=== PATIENT | male | born 1950 | race Caucasian/White ===

== ENCOUNTER 2016-11-05 05:58 | Emergency (ER) | payer BC, MEDICARE, OTHER ==
[~2016-11-05] VITALS: Ht 182.9 cm; Wt 113.6 kg
[~2016-11-05 05:58] MED LIST: ASPI81TA85 PO; CRES20TA PO; CRES5TAB PO; FISH100049 PO; FISHCAP PO; LISI-538 PO; LISI40TAB PO; METF10004 PO; METF500T13 PO; METO1TAB32 PO; METO25TAB PO; OMEP40CA2 PO; PIOG15TA3 PO; PIOG30TA4 PO; PLAV1TAB2 PO
[2016-11-05] MEDS ORDERED: ACETAMINOPH W/CODEINE #3 TAB UD PO ONE (08:00)
[2016-11-05] MEDS ORDERED: ACET30TAB PO (08:16)
--- NOTE | 2016-11-05 08:16 | REP ---
LUMBAR SPINE, FIVE VIEWS: HISTORY: Trauma. COMPARISON: 11/30/2010. There is no acute fracture or subluxation. The intervertebral discs are decreased in height consistent with disc degeneration. Osteophytes are present throughout the lumbar spine. There is narrowing of the L3-4 through L5-S1 facet joints. IMPRESSION: Degenerative change as described above. Signed by Ran Whitlock MD 11/05/2016 08:24 A
--- NOTE | 2016-11-05 08:23 | REP ---
RIGHT HAND, FOUR VIEWS: HISTORY: Pain. There is no acute fracture or dislocation. There is narrowing of the first carpometacarpal joint space with associated osteophyte formation. There is narrowing of the distal interphalangeal joint spaces. Osteophytes are present at the second through fifth distal interphalangeal joint spaces. IMPRESSION: Degenerative change as described above. Signed by Ran Whitlock MD 11/05/2016 08:24 A
[2016-11-05 08:45] VITALS: BP 155/74
== END 2016-11-05 09:01 | disposition home or self-care (01) ==
LOC: EDSEX 05:58 → M ED 05:58 → EDBD 05:58 → M ED 09:01
DX: M54.5 Low back pain (principal); M19.042 Primary osteoarthritis, left hand; M25.78 Osteophyte, vertebrae; Z95.1 Presence of aortocoronary bypass graft; I25.2 Old myocardial infarction; E78.00 Pure hypercholesterolemia, unspecified; I10 Essential (primary) hypertension; E11.9 Type 2 diabetes mellitus without complications; Z79.82 Long term (current) use of aspirin; Z79.899 Other long term (current) drug therapy; Z79.84 Long term (current) use of oral hypoglycemic drugs
CPT/HCPCS: 72110; 73130; 96372; 99284; J3360

== ENCOUNTER 2017-10-06 09:50 | Day surgery (SDC) | payer OTHER, BC ==
[~2017-10-06 09:50] MED LIST changes: -ASPI81TA85 PO; -CRES20TA PO; -CRES5TAB PO; -FISH100049 PO; -FISHCAP PO; +LIDOCAINE 2% INJ 100 MG/5 ML SDV (FOR ANES.) As Ordered; -LISI-538 PO; -LISI40TAB PO; -METF10004 PO; -METF500T13 PO; -METO1TAB32 PO; -METO25TAB PO; -OMEP40CA2 PO; -PIOG15TA3 PO; -PIOG30TA4 PO; -PLAV1TAB2 PO; +PROPOFOL 200 MG/20 ML VIAL As Ordered
[2017-10-06] MEDS: NS 1,000 ML IV (10:00)
== END 2017-10-06 12:00 | disposition home or self-care (01) ==
LOC: M OPP 09:50
DX: Z12.11 Encounter for screening for malignant neoplasm of colon (principal); K64.0 First degree hemorrhoids; D12.0 Benign neoplasm of cecum; K57.30 Diverticulosis of large intestine without perforation or abscess without bleeding; Z86.010 Personal history of colon polyps; I25.2 Old myocardial infarction; I10 Essential (primary) hypertension; M15.9 Polyosteoarthritis, unspecified; Z79.82 Long term (current) use of aspirin; Z79.899 Other long term (current) drug therapy; Z86.69 Personal history of other diseases of the nervous system and sense organs; Z95.1 Presence of aortocoronary bypass graft
CPT/HCPCS: 45380

== ENCOUNTER → 2017-12-01 | Outpatient (CLI) | payer OTHER, BC | LOC: M RAD 13:19 | DX: I65.23 Occlusion and stenosis of bilateral carotid arteries (principal) | CPT/HCPCS: 93880 ==

== ENCOUNTER → 2020-02-17 | Outpatient (REF) | payer OTHER, BC ==
[~2020-02-17] MED LIST changes: +ACET-716 PO; +ASPI81TA86 PO; +CALC500T61 PO; +CARV12.5 PO; +CRES20TA2 PO; +CRES5TAB PO; +FISH100049 PO; +FISHCAP PO; -LIDOCAINE 2% INJ 100 MG/5 ML SDV (FOR ANES.) As Ordered; +LISI-538 PO; +LISI40TA52 PO; +METF10004 PO; +METF500T13 PO; +METO1TAB32 PO; +METO1TAB63 PO; +MULTCAP PO; +OMEP40CA97 PO; +PIOG1TAB36 PO; +PIOG1TAB37 PO; +PLAV1TAB2 PO; -PROPOFOL 200 MG/20 ML VIAL As Ordered; +VALS1TAB67 PO; +VITA100066 PO
[2020-02-17 19:03] LABS: APPEARANCE, URINE CLEAR (CLEAR); BACTERIA, URINE AUTO NEGATIVE (NEGATIVE); BILIRUBIN, URINE AUTO NEGATIVE (NEGATIVE); BLOOD, URINE BLOOD NEGATIVE (NEGATIVE); COLOR, URINE YELLOW (YELLOW); GLUCOSE, URINE (UA) AUTO NEGATIVE (NEGATIVE); KETONE, URINE AUTO NEGATIVE (NEGATIVE); LEUKOCYTE ESTERASE, URINE AUTO NEGATIVE (NEGATIVE); MUCUS, URINE SMALL (NEGATIVE); NITRITE, URINE AUTO NEGATIVE (NEGATIVE); PROTEIN, URINE AUTO 1+ mg/dL (NEGATIVE); RBC, URINE AUTO 1 /HPF (0-3); SPECIFIC GRAVITY URINE AUTO 1.017 (1.002-1.035); SQUAMOUS EPITHELIAL CELL UR AU 0 /HPF (0-6); WBC, URINE AUTO 0 /HPF (0-3)
== END ==
LOC: M SMT 16:54
PROVIDERS: ATTEND Nurse Practitioner Women's Health
DX: N40.0 Benign prostatic hyperplasia without lower urinary tract symptoms (principal)

== ENCOUNTER → 2020-05-15 | Outpatient (CLI) | payer OTHER, BC ==
[~2020-05-15] MED LIST changes: -LISI-538 PO; +LISI20TA33 PO
== END ==
LOC: M LAB 11:57
PROVIDERS: ATTEND Nurse Practitioner Women's Health
DX: N40.0 Benign prostatic hyperplasia without lower urinary tract symptoms (principal); R97.20 Elevated prostate specific antigen [PSA]

== ENCOUNTER → 2021-02-03 | Outpatient (CLI) | payer OTHER, BC ==
[~2021-02-03] MED LIST changes: +OMEP40CA4 PO; -OMEP40CA97 PO
[2021-02-03 11:07] LABS: APPEARANCE, URINE CLEAR (CLEAR); BACTERIA, URINE AUTO NEGATIVE (NEGATIVE); BILIRUBIN, URINE AUTO NEGATIVE (NEGATIVE); BLOOD, URINE BLOOD NEGATIVE (NEGATIVE); COLOR, URINE YELLOW (YELLOW); GLUCOSE, URINE (UA) AUTO NEGATIVE (NEGATIVE); KETONE, URINE AUTO NEGATIVE (NEGATIVE); LEUKOCYTE ESTERASE, URINE AUTO NEGATIVE (NEGATIVE); MUCUS, URINE SMALL (NEGATIVE); NITRITE, URINE AUTO NEGATIVE (NEGATIVE); PROTEIN, URINE AUTO 1+ mg/dL (NEGATIVE); RBC, URINE AUTO 0 /HPF (0-3); SPECIFIC GRAVITY URINE AUTO 1.015 (1.002-1.035); SQUAMOUS EPITHELIAL CELL UR AU 0 /HPF (0-6); UROBILINOGEN, URINE AUTO 0.2 mg/dL (0.0-2.0); WBC, URINE AUTO 0 /HPF (0-3)
[2021-02-03 11:15] LABS: HEMOGLOBIN 13.1 g/dl (13.5-17.5); MEAN CORPUSCULAR HGB CONC 34.5 g/dl (32.0-36.5); MEAN CORPUSCULAR VOLUME 92.9 fl (80.0-96.0); PLATELET COUNT, AUTOMATED 237 10^3/uL (150-450); RED BLOOD COUNT 4.09 10^6/uL (4.30-6.10); WHITE BLOOD COUNT 6.7 10^3/uL (4.0-10.0)
[2021-02-03 11:48] LABS: MAU/CREAT RATIO 104.6 MCG/MG (0.0-30.0)
[2021-02-03 11:49] LABS: ALBUMIN 3.5 GM/DL (3.2-5.2); ALT/SGPT 21 U/L (12-78); BILIRUBIN,TOTAL 0.5 MG/DL (0.2-1.0); BLOOD UREA NITROGEN 16 MG/DL (7-18); CALCIUM LEVEL 9.1 MG/DL (8.8-10.2); CARBON DIOXIDE LEVEL 28 MEQ/L (21-32); CHLORIDE LEVEL 108 MEQ/L (98-107); CHOLESTEROL LEVEL 125 MG/DL (<200); CHOLESTEROL RISK RATIO 2.604 (<5); CREATININE FOR GFR 1.12 MG/DL (0.70-1.30); GLOMERULAR FILTRATION RATE > 60.0 (>42); GLUCOSE, FASTING 136 MG/DL (70-100); HDL CHOLESTEROL 48 MG/DL (>40); LDL CHOLESTEROL 60 MG/DL (<100); NON-HDL-C 77 MG/DL; POTASSIUM SERUM 4.5 MEQ/L (3.5-5.1); PROSTATIC SPECIFIC AG MONITOR 4.24 NG/ML (< 4.00); SODIUM LEVEL 141 MEQ/L (136-145); TOTAL 25(OH) VITAMIN D 40.1 NG/ML (30.0-100.0); TOTAL PROTEIN 6.8 GM/DL (6.4-8.2); TRIGLYCERIDES LEVEL 85 MG/DL (<150); URIC ACID 5.5 MG/DL (3.5-7.2)
[2021-02-03 12:38] LABS: HEMOGLOBIN A1c 6.5 %
== END ==
LOC: M LAB 08:34
PROVIDERS: ATTEND Nurse Practitioner Primary Care
DX: D64.9 Anemia, unspecified (principal); E11.9 Type 2 diabetes mellitus without complications; E78.5 Hyperlipidemia, unspecified; I25.10 Atherosclerotic heart disease of native coronary artery without angina pectoris; Z79.899 Other long term (current) drug therapy

== ENCOUNTER → 2021-02-15 | Outpatient (CLI) | payer OTHER ==
--- NOTE | 2021-02-15 10:58 | REP ---
INDICATION: OCCLUSION/STENOSIS MARISELA COMPARISON: 12/01/2017 TECHNIQUE: Clayton scale and color Doppler evaluation using linear high frequency transducer Findings: FINDINGS: Two-dimensional clayton scale and color images demonstrate significant mixed atheromatous plaquing throughout the common carotid arteries extending into the visualized proximal internal and external carotid arteries bilaterally. Color Doppler interrogation demonstrates arterial wave patterns with elements of spectral broadening. Normal flow direction is appreciated in the bilateral vertebral arteries. ICA peak systolic velocity: Right 71.3 cm/s; Left 89.3 cm/s ICA diastolic velocity: Right 14.3 cm/s; Left 20.7 cm/s ECA peak systolic velocity: Right 158.0 cm/s; Left 141.0 cm/s CCA peak systolic velocity: Right 92.5 cm/s; Left 80.2 cm/s ICA/CCA ratio: Right 0.77 cm/s; Left 1.11 cm/s IMPRESSION: 1. 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 2. Based on set standards narrowing falls within the less than 50% range. However, visible areas of narrowing through the right internal carotid artery and left common carotid artery suggest narrowing in the 50-69% range. Correlation with symptomatology and possible CTA or MRA may be considered for further more definitive evaluation. <Electronically signed by Ramiro Perez > 02/15/21 [id number]
== END ==
LOC: M RAD 10:01
PROVIDERS: ATTEND Nurse Practitioner Family
DX: I65.23 Occlusion and stenosis of bilateral carotid arteries (principal)

== ENCOUNTER → 2022-01-06 | Outpatient (CLI) | payer OTHER | LOC: M RAD 13:50 | PROVIDERS: ATTEND Nurse Practitioner Family | DX: I65.23 Occlusion and stenosis of bilateral carotid arteries (principal) ==

== ENCOUNTER 2022-12-16 14:31 | Inpatient (IN) | payer BC, MEDICARE, OTHER ==
[~2022-12-16] VITALS: Ht 182.9 cm; Wt 98.0 kg
[~2022-12-16 14:31] MED LIST changes: +CLOP75TA99 PO; -PLAV1TAB2 PO
[2022-12-16 15:51] LABS: BASO % 0.3 % (0.0-1.0); EOS # 0.2 10^3/uL (0.0-0.5); EOS % 1.8 % (0.0-3.0); HEMATOCRIT 36.9 % (42.0-52.0); HEMOGLOBIN 12.8 g/dl (13.5-17.5); LYMPH # 1.8 10^3/uL (1.5-5.0); LYMPH % 14.9 % (24.0-44.0); MEAN CORPUSCULAR HEMOGLOBIN 31.8 pg (27.0-33.0); MEAN CORPUSCULAR HGB CONC 34.7 g/dl (32.0-36.5); MEAN CORPUSCULAR VOLUME 91.6 fl (80.0-96.0); MONO # 0.9 10^3/uL (0.0-0.8); MONO % 7.1 % (2.0-8.0); NEUTROPHILS # 9.3 10^3/uL (1.5-8.5); NEUTROPHILS % 75.3 % (36.0-66.0); PLATELET COUNT, AUTOMATED 355 10^3/uL (150-450); RED BLOOD COUNT 4.03 10^6/uL (4.30-6.10); WHITE BLOOD COUNT 12.3 10^3/uL (4.0-10.0)
[2022-12-16 16:06] LABS: INR 1.23; PROTHROMBIN TIME 15.2 SECONDS (12.5-14.5)
[2022-12-16 16:07] LABS: PARTIAL THROMBOPLASTIN TIME 28.1 SECONDS (24.8-34.2)
[2022-12-16 16:15] LABS: CALCIUM LEVEL 8.6 MG/DL (8.3-10.6); CREATININE FOR GFR 1.85 MG/DL (0.70-1.30); GLOMERULAR FILTRATION RATE 38.2 (>42); POTASSIUM SERUM 3.2 MMOL/L (3.5-5.1)
[2022-12-16] MEDS ORDERED: NS 1,000 ML IV ONE (18:30)
[2022-12-16] MEDS ORDERED: PANTOPRAZOLE 40MG VIAL IV ONE (18:30)
[2022-12-16 19:44] LABS: ALBUMIN 3.4 G/DL (3.2-5.2); BILIRUBIN,DIRECT 0.3 MG/DL (<0.4); BILIRUBIN,TOTAL 0.7 MG/DL (0.3-1.2); TOTAL PROTEIN 7.2 G/DL (5.7-8.2)
[2022-12-16 19:46] LABS: MB/CK RELATIVE INDEX 0.91 (< OR =4)
[2022-12-16] MEDS ORDERED: AMLO1TAB25 PO (22:02)
[2022-12-16] MEDS ORDERED: OMEG10005 PO (22:02)
[2022-12-16] MEDS ORDERED: VITA100093 PO (22:02)
[2022-12-16] MEDS ORDERED: NESI25TA PO (22:02)
[2022-12-16] MEDS ORDERED: FLOM0.4C39 PO (22:02)
[2022-12-16] MEDS ORDERED: MULT-40 PO (22:02)
[2022-12-16] MEDS ORDERED: ALLO100T PO (22:02)
[2022-12-16] MEDS ORDERED: MUCI600T31 PO (22:02)
[2022-12-16] MEDS ORDERED: ALOG25TA PO (22:02)
[2022-12-16] MEDS ORDERED: CHLO125TA PO (22:03)
[2022-12-16] MEDS ORDERED: HOME MED LIST COMPLETE! XX SCH (22:05)
[2022-12-16] MEDS ORDERED: NS 1,000 ML IV SCH (22:05)
[2022-12-16 22:14] VITALS: BP 149/72; TEMP 98.3; O2SAT 100
[2022-12-16] MEDS ORDERED: GLUCOSE 4GM CHEW TABLET PO PRN (22:25)
[2022-12-16] MEDS ORDERED: GLUCAGON INJ 1MG VIAL SC PRN (22:25)
[2022-12-16] MEDS ORDERED: DEXTROSE 50% 50ML SYRINGE IV PRN (22:25)
[2022-12-16] MEDS ORDERED: POTASSIUM CHLORIDE 10% LIQ 20MEQ/15ML UDC PO ONE (22:30)
[2022-12-16] MEDS: TAMSULOSIN 0.4 MG CAP PO SCH (22:44)
[2022-12-16] MEDS: AZITHROMYCIN 250MG TABLET PO SCH (22:44)
[2022-12-16] MEDS: CARVedilol 12.5 MG TAB PO SCH (22:45)
[2022-12-16] MEDS: ROSUVASTATIN 10 MG TAB (CRESTOR) PO SCH (22:45)
[2022-12-17 06:52] LABS: BASO % 0.3 % (0.0-1.0); EOS # 0.2 10^3/uL (0.0-0.5); EOS % 3.8 % (0.0-3.0); HEMATOCRIT 34.3 % (42.0-52.0); HEMOGLOBIN 12.1 g/dl (13.5-17.5); LYMPH # 1.6 10^3/uL (1.5-5.0); LYMPH % 24.7 % (24.0-44.0); MEAN CORPUSCULAR HEMOGLOBIN 32.2 pg (27.0-33.0); MEAN CORPUSCULAR HGB CONC 35.3 g/dl (32.0-36.5); MEAN CORPUSCULAR VOLUME 91.2 fl (80.0-96.0); MONO # 0.6 10^3/uL (0.0-0.8); MONO % 9.8 % (2.0-8.0); NEUTROPHILS # 3.9 10^3/uL (1.5-8.5); NEUTROPHILS % 61.1 % (36.0-66.0); PLATELET COUNT, AUTOMATED 321 10^3/uL (150-450); RED BLOOD COUNT 3.76 10^6/uL (4.30-6.10); WHITE BLOOD COUNT 6.3 10^3/uL (4.0-10.0)
[2022-12-17] MEDS: INSULIN LISPRO (NovoLOG) PER UNIT SC SCH ×3 (07:30→16:28)
[2022-12-17] MEDS ORDERED: OMEPRAZOLE 20MG CAP PO SCH (09:00)
[2022-12-17] MEDS: allopurinoL 100 MG TAB PO SCH (10:55)
[2022-12-17] MEDS: CARVedilol 12.5 MG TAB PO SCH ×2 (10:55→20:58)
[2022-12-17] MEDS: guaiFENesin ER TABLET 600 MG TAB PO SCH (10:55)
[2022-12-17 11:02] LABS: CALCIUM LEVEL 8.2 MG/DL (8.3-10.6); CREATININE FOR GFR 1.44 MG/DL (0.70-1.30); GLOMERULAR FILTRATION RATE 51.1 (>42); MAGNESIUM LEVEL 1.2 MG/DL (1.8-2.4); POTASSIUM SERUM 3.4 MMOL/L (3.5-5.1)
[2022-12-17] MEDS ORDERED: MAG SULF 1GM/100ML (MAG RUN) 1 GM in IV 1 EA IV SCH (11:15)
[2022-12-17] MEDS ORDERED: POTASSIUM CHLORIDE 10MEQ SR TABLET PO ONE (11:15)
[2022-12-17 12:18] VITALS: BP 136/48; TEMP 97.9; O2SAT 96
[2022-12-17 12:22] LABS: HEMOGLOBIN 11.5 g/dl (13.5-17.5)
[2022-12-17] MEDS: NS 1,000 ML IV SCH ×2 (12:42→20:59)
[2022-12-17] MEDS: VITAMIN D 1,000 INTERNATIONAL UNITS TABLET PO SCH (13:15)
[2022-12-17] MEDS: MAG SULF 1GM/100ML (MAG RUN) 1 GM in IV 1 EA IV SCH ×3 (13:57→16:06)
[2022-12-17 14:00] VITALS: BP 126/66; TEMP 97.9; O2SAT 98
[2022-12-17] MEDS: MULTIVITAMINS/MINERALS THERAP 1 TAB PO SCH (17:52)
[2022-12-17] MEDS: CLOPIDOGREL 75 MG TAB PO SCH (17:52)
[2022-12-17] MEDS ORDERED: PANTOPRAZOLE 40MG VIAL IV SCH (18:00)
[2022-12-17 18:14] LABS: HEMATOCRIT 34.3 % (42.0-52.0)
[2022-12-17 20:00] VITALS: BP 148/66; TEMP 97.9; O2SAT 94
[2022-12-17] MEDS: AZITHROMYCIN 250MG TABLET PO SCH (20:53)
[2022-12-17] MEDS: OMEGA-3 1000MG CAPSULE PO SCH (20:53)
[2022-12-17] MEDS: ROSUVASTATIN 10 MG TAB (CRESTOR) PO SCH (20:54)
[2022-12-17] MEDS: TAMSULOSIN 0.4 MG CAP PO SCH (20:54)
[2022-12-17] MEDS: HEPARIN SOD (PORCINE) 5000UNITS/ML 1ML VIAL/SYRINGE SQ SCH (20:59)
[2022-12-18 00:37] LABS: HEMATOCRIT 31.9 % (42.0-52.0)
[2022-12-18 05:15] VITALS: BP 142/71; TEMP 98.1; O2SAT 95
[2022-12-18] MEDS: HEPARIN SOD (PORCINE) 5000UNITS/ML 1ML VIAL/SYRINGE SQ SCH (06:04)
[2022-12-18 06:54] LABS: BASO % 0.3 % (0.0-1.0); EOS # 0.2 10^3/uL (0.0-0.5); EOS % 3.4 % (0.0-3.0); HEMATOCRIT 35.2 % (42.0-52.0); HEMOGLOBIN 12.1 g/dl (13.5-17.5); LYMPH # 1.2 10^3/uL (1.5-5.0); LYMPH % 17.4 % (24.0-44.0); MEAN CORPUSCULAR HEMOGLOBIN 31.5 pg (27.0-33.0); MEAN CORPUSCULAR HGB CONC 34.4 g/dl (32.0-36.5); MEAN CORPUSCULAR VOLUME 91.7 fl (80.0-96.0); MONO # 0.5 10^3/uL (0.0-0.8); MONO % 7.2 % (2.0-8.0); NEUTROPHILS # 4.9 10^3/uL (1.5-8.5); NEUTROPHILS % 71.4 % (36.0-66.0); PLATELET COUNT, AUTOMATED 348 10^3/uL (150-450); RED BLOOD COUNT 3.84 10^6/uL (4.30-6.10); WHITE BLOOD COUNT 6.8 10^3/uL (4.0-10.0)
[2022-12-18 07:18] LABS: CALCIUM LEVEL 8.6 MG/DL (8.3-10.6); CREATININE FOR GFR 1.29 MG/DL (0.70-1.30); MAGNESIUM LEVEL 1.6 MG/DL (1.8-2.4); POTASSIUM SERUM 3.8 MMOL/L (3.5-5.1)
[2022-12-18] MEDS: MAG SULF 1GM/100ML (MAG RUN) 1 GM in IV 1 EA IV SCH ×2 (07:44→08:52)
[2022-12-18] MEDS: INSULIN LISPRO (NovoLOG) PER UNIT SC SCH (08:50)
[2022-12-18 08:53] VITALS: BP 144/71
[2022-12-18] MEDS: OMEGA-3 1000MG CAPSULE PO SCH (08:53)
[2022-12-18] MEDS: VITAMIN D 1,000 INTERNATIONAL UNITS TABLET PO SCH (08:53)
[2022-12-18] MEDS: MULTIVITAMINS/MINERALS THERAP 1 TAB PO SCH (08:53)
[2022-12-18] MEDS: CLOPIDOGREL 75 MG TAB PO SCH (08:53)
[2022-12-18] MEDS: CARVedilol 12.5 MG TAB PO SCH (08:54)
[2022-12-18] MEDS: guaiFENesin ER TABLET 600 MG TAB PO SCH (08:54)
[2022-12-18] MEDS: allopurinoL 100 MG TAB PO SCH (08:54)
[2022-12-18] MEDS ORDERED: PANT40TA29 PO (11:04)
[2022-12-18] MEDS ORDERED: AZIT-12 PO (11:04)
== END 2022-12-18 11:30 | disposition home or self-care (01) | DRG 371 ==
LOC: M ED 14:31 → M ED INP 22:03 → ENRESERV 12-17 11:19 → M MSPAV 12-17 12:40
PROVIDERS: ADMIT Internal Medicine; ATTEND Internal Medicine
DX: A04.5 Campylobacter enteritis (principal); U07.1 COVID-19; N17.9 Acute kidney failure, unspecified; I25.10 Atherosclerotic heart disease of native coronary artery without angina pectoris; E11.9 Type 2 diabetes mellitus without complications; K21.9 Gastro-esophageal reflux disease without esophagitis; I10 Essential (primary) hypertension; E78.00 Pure hypercholesterolemia, unspecified; E87.6 Hypokalemia; N40.0 Benign prostatic hyperplasia without lower urinary tract symptoms; M10.9 Gout, unspecified; K80.20 Calculus of gallbladder without cholecystitis without obstruction; Z79.84 Long term (current) use of oral hypoglycemic drugs; Z79.899 Other long term (current) drug therapy; Z95.5 Presence of coronary angioplasty implant and graft; E83.42 Hypomagnesemia

== ENCOUNTER → 2023-04-19 | Outpatient (CLI) | payer OTHER ==
[~2023-04-19] MED LIST changes: +ALLO100T PO; +ALOG25TA PO; +AMLO1TAB25 PO; +AZIT-12 PO; +CHLO125TA PO; +FLOM0.4C39 PO; +MUCI600T31 PO; +MULT-40 PO; +NESI25TA PO; +OMEG10005 PO; +PANT40TA29 PO; +VITA100093 PO
== END ==
LOC: M RAD 13:54
PROVIDERS: ATTEND Internal Medicine
DX: N18.30 Chronic kidney disease, stage 3 unspecified (principal)

== ENCOUNTER 2023-05-26 08:32 | Day surgery (SDC) | payer OTHER ==
[~2023-05-26] VITALS: Ht 182.9 cm; Wt 98.1 kg
[~2023-05-26 08:32] MED LIST changes: +JARD1TAB3 PO
[2023-05-26] MEDS: NS 1,000 ML IV ONE (08:50)
[2023-05-26] MEDS ORDERED: propofoL 200 MG/20 ML VIAL As Ordered ONE (10:45)
[2023-05-26] MEDS ORDERED: ePHEDrine SULFATE 25 MG/5 ML(5MG/ML) SYRINGE As Ordered ONE (10:45)
[2023-05-26 10:49] VITALS: TEMP 96.5
[2023-05-26 11:12] VITALS: BP 121/58; O2SAT 96
== END 2023-05-26 11:13 | disposition home or self-care (01) ==
LOC: M OPP 08:32
PROVIDERS: ATTEND Internal Medicine Gastroenterology
DX: Z12.11 Encounter for screening for malignant neoplasm of colon (principal); Z86.010 Personal history of colon polyps; D12.6 Benign neoplasm of colon, unspecified; K57.30 Diverticulosis of large intestine without perforation or abscess without bleeding; E11.9 Type 2 diabetes mellitus without complications; I25.10 Atherosclerotic heart disease of native coronary artery without angina pectoris; G47.30 Sleep apnea, unspecified; Z86.73 Personal history of transient ischemic attack (TIA), and cerebral infarction without residual deficits; Z79.02 Long term (current) use of antithrombotics/antiplatelets; Z79.83 Long term (current) use of bisphosphonates; Z79.84 Long term (current) use of oral hypoglycemic drugs; Z79.899 Other long term (current) drug therapy

== ENCOUNTER 2023-06-21 13:45 | Emergency (ER) | payer OTHER ==
[~2023-06-21] VITALS: Ht 182.9 cm; Wt 99.6 kg
[2023-06-21 14:59] LABS: BASO % 0.5 % (0.0-1.0); EOS # 0.2 10^3/uL (0.0-0.5); EOS % 2.3 % (0.0-3.0); HEMOGLOBIN 13.3 g/dl (13.5-17.5); LYMPH # 1.8 10^3/uL (1.5-5.0); LYMPH % 20.5 % (24.0-44.0); MEAN CORPUSCULAR HEMOGLOBIN 32.8 pg (27.0-33.0); MEAN CORPUSCULAR VOLUME 93.6 fl (80.0-96.0); MONO # 1.1 10^3/uL (0.0-0.8); MONO % 12.4 % (2.0-8.0); NEUTROPHILS # 5.6 10^3/uL (1.5-8.5); PLATELET COUNT, AUTOMATED 240 10^3/uL (150-450); RED BLOOD COUNT 4.06 10^6/uL (4.30-6.10); WHITE BLOOD COUNT 8.7 10^3/uL (4.0-10.0)
[2023-06-21 15:11] LABS: INR 1.07; PROTHROMBIN TIME 13.5 SECONDS (12.5-14.5)
[2023-06-21 15:28] LABS: ALBUMIN 3.4 G/DL (3.2-5.2); BILIRUBIN,TOTAL 0.6 MG/DL (0.3-1.2); CK-MB VALUE MASS 2.9 NG/ML (<3.6); CREATININE FOR GFR 1.78 MG/DL (0.70-1.30); GLOMERULAR FILTRATION RATE 39.9 (>42); MAGNESIUM LEVEL 1.6 MG/DL (1.8-2.4); MB/CK RELATIVE INDEX 0.95 (< OR =4); POTASSIUM SERUM 3.7 MMOL/L (3.5-5.1); TOTAL PROTEIN 6.8 G/DL (5.7-8.2)
[2023-06-21 17:09] VITALS: BP 155/72; TEMP 97.9; O2SAT 99
== END 2023-06-21 17:13 | disposition home or self-care (01) ==
LOC: M ED 13:45
DX: S60.912A Unspecified superficial injury of left wrist, initial encounter (principal); W19.XXXA Unspecified fall, initial encounter; M50.322 Other cervical disc degeneration at C5-C6 level; M18.12 Unilateral primary osteoarthritis of first carpometacarpal joint, left hand; M16.0 Bilateral primary osteoarthritis of hip; M50.31 Other cervical disc degeneration, high cervical region; M51.36 Other intervertebral disc degeneration, lumbar region; M51.26 Other intervertebral disc displacement, lumbar region; M25.78 Osteophyte, vertebrae; E11.9 Type 2 diabetes mellitus without complications; Z86.79 Personal history of other diseases of the circulatory system; Z79.83 Long term (current) use of bisphosphonates; Z79.84 Long term (current) use of oral hypoglycemic drugs; Z79.899 Other long term (current) drug therapy; Z79.01 Long term (current) use of anticoagulants; Y92.9 Unspecified place or not applicable; Y93.9 Activity, unspecified; Y99.9 Unspecified external cause status

== ENCOUNTER → 2023-11-29 | Outpatient (CLI) | payer OTHER | LOC: M RAD 11:10 | PROVIDERS: ATTEND Nurse Practitioner Family | DX: I65.23 Occlusion and stenosis of bilateral carotid arteries (principal) ==

== ENCOUNTER → 2023-12-08 | Outpatient (REF) | payer OTHER ==
[2023-12-11 19:31] LABS: IRON (FE) 66 UG/DL (65-175); PERCENT SATURATION 23.1 % (19.7-50.0); TOTAL IRON BINDING CAPACITY 286 UG/DL (250-425)
[2023-12-11 19:32] LABS: FERRITIN 55.1 NG/ML (10.5-307.3)
[2023-12-11 19:33] LABS: VITAMIN B12 LEVEL 478 PG/ML (211-911)
[2023-12-11 19:34] LABS: FOLATE > 24.0 NG/ML (>5.4)
== END ==
LOC: M LAB REF 17:24
PROVIDERS: ATTEND Internal Medicine Nephrology
DX: N18.9 Chronic kidney disease, unspecified (principal); D63.1 Anemia in chronic kidney disease

== ENCOUNTER 2024-04-05 11:13 | Emergency (ER) | payer BC, OTHER ==
[~2024-04-05] VITALS: Ht 182.9 cm; Wt 92.8 kg
[2024-04-05 11:55] LABS: BASO % 0.1 % (0.0-1.0); EOS % 0.1 % (0.0-3.0); HEMATOCRIT 41.2 % (42.0-52.0); HEMOGLOBIN 14.2 g/dl (13.5-17.5); LYMPH # 0.9 10^3/uL (1.5-5.0); LYMPH % 5.7 % (24.0-44.0); MEAN CORPUSCULAR HEMOGLOBIN 31.8 pg (27.0-33.0); MEAN CORPUSCULAR HGB CONC 34.5 g/dl (32.0-36.5); MEAN CORPUSCULAR VOLUME 92.2 fl (80.0-96.0); MONO # 0.9 10^3/uL (0.0-0.8); MONO % 6.1 % (2.0-8.0); NEUTROPHILS # 13.1 10^3/uL (1.5-8.5); NEUTROPHILS % 87.6 % (36.0-66.0); PLATELET COUNT, AUTOMATED 255 10^3/uL (150-450); RED BLOOD COUNT 4.47 10^6/uL (4.30-6.10)
[2024-04-05 12:14] LABS: INR 1.15; PARTIAL THROMBOPLASTIN TIME 28.8 SECONDS (24.8-34.2)
[2024-04-05 12:18] LABS: CREATININE FOR GFR 1.62 MG/DL (0.70-1.30); GLOMERULAR FILTRATION RATE 44.3 (>42); POTASSIUM SERUM 4.1 MMOL/L (3.5-5.1)
[2024-04-05] MEDS ORDERED: ISOVUE-370 76% 100ML VIAL As Ordered ONE (14:40)
[2024-04-05 15:45] VITALS: BP 139/65; O2SAT 92
[2024-04-05 16:01] VITALS: TEMP 98.7
[2024-04-05] MEDS ORDERED: MIRA3350 PO (16:25)
== END 2024-04-05 16:53 | disposition home or self-care (01) ==
LOC: M ED 11:13
DX: K62.5 Hemorrhage of anus and rectum (principal); K64.9 Unspecified hemorrhoids; I70.1 Atherosclerosis of renal artery; N40.1 Benign prostatic hyperplasia with lower urinary tract symptoms; K80.20 Calculus of gallbladder without cholecystitis without obstruction; K40.20 Bilateral inguinal hernia, without obstruction or gangrene, not specified as recurrent; K42.9 Umbilical hernia without obstruction or gangrene; I45.81 Long QT syndrome; I25.2 Old myocardial infarction; E11.9 Type 2 diabetes mellitus without complications; K21.9 Gastro-esophageal reflux disease without esophagitis; G47.33 Obstructive sleep apnea (adult) (pediatric); K57.30 Diverticulosis of large intestine without perforation or abscess without bleeding; F10.10 Alcohol abuse, uncomplicated; Z79.899 Other long term (current) drug therapy
CPT/HCPCS: 36415; 74174; 80048; 85025; 85610; 85730; 93005; 99284; Q9967

== ENCOUNTER → 2024-11-18 | Outpatient (REF) | payer OTHER ==
[~2024-11-18] MED LIST changes: -FLOM0.4C39 PO; +MIRA3350 PO; +TAMS-18 PO
[2024-11-21 11:17] LABS: PSA % FREE 41.0 % (calc) (>25); PSA FREE 3.0 ng/mL; PSA TOTAL 7.3 ng/mL (< OR = 4.0)
== END ==
LOC: M LAB REF 17:51
PROVIDERS: ATTEND Physician Assistant
DX: R97.20 Elevated prostate specific antigen [PSA] (principal)